=== PATIENT | male | born 1955 | race Caucasian/White ===

== ENCOUNTER 2018-05-14 04:16 | Emergency (ER) | payer MEDICAID, OTHER ==
[~2018-05-14] VITALS: Ht 185.4 cm; Wt 90.7 kg
[2018-05-14 04:37] VITALS: BP 165/116
== END 2018-05-14 06:36 | disposition left against medical advice (07) ==
LOC: ER 04:16
DX: R07.9 Chest pain, unspecified (principal); Z53.21 Procedure and treatment not carried out due to patient leaving prior to being seen by health care provider; V49.9XXA Car occupant (driver) (passenger) injured in unspecified traffic accident, initial encounter; Y93.89 Activity, other specified; Y92.488 Other paved roadways as the place of occurrence of the external cause; Y99.8 Other external cause status